=== PATIENT | male | born 1970 | race Caucasian/White ===

== ENCOUNTER 2023-09-27 10:02 | Inpatient (IN) | payer OTHER ==
[2023-09-27] MEDS ORDERED: Heparin 5,000 UNITS/ML VIAL ONE (10:51)
[2023-09-27] MEDS ORDERED: Bupivacaine PF 0.5% 30 ML VIAL ONE ×2 (10:51→11:23)
[2023-09-27] MEDS ORDERED: EPINEPHrine 1 MG/ML VIAL ONE (10:51)
[2023-09-27] MEDS ORDERED: fentaNYL PF 100 MCG/2 ML SYRINGE ONE (10:52)
[2023-09-27 11:08] LABS: #Basophils Less than 0.03 10x3/uL (0.0-0.2); #Eosinphils Less than 0.03 10x3/uL (0.0-0.7); %Basophils 0.1 % (0.0-1.0); %Lymphocytes 3.8 % (21.0-51.0); %Monocytes 8.4 % (0.0-10.0); Hematocrit 39.5 % (42.0-52.0); Hemoglobin 12.8 g/dL (14.0-18.0); Mean Corpuscular HGB CONC 32.4 g/dL (32.0-36.0); Mean Corpuscular Hemoglobin 26.9 pg (27.0-31.0); Mean Corpuscular Volume 83.2 fL (78.0-98.0); Mean Platelet Volume 10.5 fL (7.4-10.4); Platelet Count 143 10x3/uL (130-400); RBC Distribution Width 16.8 % (11.5-14.5); Red Blood Cell (RBC) Count 4.75 mill/uL (4.70-6.10)
[2023-09-27] MEDS ORDERED: SUCCINYLCHOLINE/SOD CL,ISO/PF 200 MG/10 ML SYRINGE FS ONE (11:21)
[2023-09-27] MEDS ORDERED: Rocuronium Bromide 10 MG/ML (10ML VIAL) ONE (11:21)
[2023-09-27 11:24] LABS: INR-International Normal Ratio 1.2
[2023-09-27] MEDS ORDERED: SUGAMMADEX SODIUM 200 MG/2 ML VIAL ONE (11:26)
[2023-09-27] MEDS ORDERED: fentaNYL 50 mcg/mL 1 mL Vial SLOW IVP PRN (11:34)
[2023-09-27] MEDS ORDERED: Promethazine HCl 25 MG/ML VIAL IM PRN (11:34)
[2023-09-27] MEDS ORDERED: Ondansetron PF 4 MG/2 ML Vial IVP PRN ×2 (11:34→11:36)
[2023-09-27] MEDS ORDERED: traMADol HCl 50 MG TAB PO PRN (11:34)
[2023-09-27] MEDS ORDERED: Acetaminophen 325 MG TAB PO PRN (11:36)
[2023-09-27] MEDS ORDERED: Labetalol HCl 100 MG/20 ML VIAL ONE (11:40)
[2023-09-27 11:44] LABS: ALT (SGPT) 21 U/L (8-55); AST (SGOT) 28 U/L (5-34); Albumin 3.1 g/dL (3.5-5.0); Alkaline Phosphatase 31 U/L (40-110); Anion Gap 16 mmol/L (10-20); BUN (Urea Nitrogen) 16 mg/dL (8.4-25.7); Bilirubin, Total 0.4 mg/dL (0.2-1.2); Calc. Creatinine Clearance 0 mL/min (70-130); Calcium 7.5 mg/dL (7.8-10.44); Carbon Dioxide 15 mmol/L (22-29); Chloride 114 mmol/L (98-107); Estimated GFR 68; Globulin 2.3 g/dL (2.4-3.5); Glucose 74 mg/dL (70-105); Potassium 4.2 mmol/L (3.5-5.1); Protein, Total 5.4 g/dL (6.0-8.3); Sodium 141 mmol/L (136-145); Troponin I 0.093 ng/mL (< 0.028)
[2023-09-27 16:46] VITALS: BMI 21.7
[2023-09-27] MEDS: CEFAZOLIN 2 GM in Sodium Chloride 0.9% 100 ML IVPB SCH (16:49)
[2023-09-27] MEDS: Sodium Chloride 0.9% 1,000 ML IV SCH (16:49)
[2023-09-27] MEDS ORDERED: Lorazepam 2 MG/ML VIAL SLOW IVP PRN (16:58)
[2023-09-27] MEDS: levETIRAcetam 500 MG TAB PO SCH (20:01)
[2023-09-27] MEDS: Famotidine 20 MG TAB PO SCH (20:01)
[2023-09-27] MEDS: traMADol HCl 50 MG TAB PO PRN (20:13)
[2023-09-27] MEDS: Acetaminophen 325 MG TAB PO PRN (20:13)
[2023-09-27 21:47] LABS: Magnesium 1.6 mg/dL (1.6-2.6)
[2023-09-27 21:51] LABS: Troponin I 0.138 ng/mL (< 0.028)
[2023-09-27] MEDS ORDERED: Electrolyte Replacement Protocol 1 EACH FS SCH (22:00)
[2023-09-27] MEDS: Magnesium 2 GM/50 ML(in water) 2 GM in Premix 1 BAG IVPB SCH (22:10)
[2023-09-28 05:35] LABS: #Basophils 0.03 10x3/uL (0.0-0.2); %Basophils 0.3 % (0.0-1.0); %Eosinophils 0.8 % (0.0-10.0); %Lymphocytes 17.9 % (21.0-51.0); %Neutrophils 74.5 % (42.0-75.0); Hematocrit 27.5 % (42.0-52.0); Hemoglobin 9.3 g/dL (14.0-18.0); Mean Corpuscular HGB CONC 33.8 g/dL (32.0-36.0); Mean Corpuscular Hemoglobin 27.2 pg (27.0-31.0); Mean Corpuscular Volume 80.4 fL (78.0-98.0); Mean Platelet Volume 11.1 fL (7.4-10.4); Platelet Count 121 10x3/uL (130-400); RBC Distribution Width 17.3 % (11.5-14.5); Red Blood Cell (RBC) Count 3.42 mill/uL (4.70-6.10)
[2023-09-28 06:09] LABS: Anion Gap 6 mmol/L (10-20); BUN (Urea Nitrogen) 19 mg/dL (8.4-25.7); Calc. Creatinine Clearance 97 mL/min (70-130); Calcium 7.6 mg/dL (7.8-10.44); Carbon Dioxide 24 mmol/L (22-29); Chloride 111 mmol/L (98-107); Estimated GFR 97; Glucose 106 mg/dL (70-105); Potassium 4.1 mmol/L (3.5-5.1); Sodium 137 mmol/L (136-145)
[2023-09-28 08:10] LABS: Troponin I 0.075 ng/mL (< 0.028)
[2023-09-28] MEDS: Senokot S 8.6-50 MG TAB PO SCH (08:33)
[2023-09-28] MEDS ORDERED: SOFOSBUVIR PO SCH (09:00)
[2023-09-28] MEDS ORDERED: VELPATASVIR PO SCH (09:00)
[2023-09-28 09:55] VITALS: BP 108/62; TEMP 97.6
[2023-09-28] MEDS: Morphine 2 MG/ML VIAL SLOW IVP PRN (11:41)
== END 2023-09-28 14:05 | DRG 907 ==
LOC: ERS 10:02 → EEVIPCON 10:02 → SJJU 12:52
PROVIDERS: ADMIT Surgery; ATTEND Internal Medicine
PROC: 03QB0ZZ Repair Right Radial Artery, Open Approach (ICD-10-PCS; principal; 2023-09-27)
PROC: 30233N1 Transfusion of Nonautologous Red Blood Cells into Peripheral Vein, Percutaneous Approach (ICD-10-PCS; 2023-09-27)
DX: S65.111A Laceration of radial artery at wrist and hand level of right arm, initial encounter (principal); I21.A1 Myocardial infarction type 2; R57.8 Other shock; X78.8XXA Intentional self-harm by other sharp object, initial encounter; B18.2 Chronic viral hepatitis C; K21.9 Gastro-esophageal reflux disease without esophagitis; G40.909 Epilepsy, unspecified, not intractable, without status epilepticus; F20.9 Schizophrenia, unspecified; F41.9 Anxiety disorder, unspecified; F31.9 Bipolar disorder, unspecified; Z88.8 Allergy status to other drugs, medicaments and biological substances; Z79.899 Other long term (current) drug therapy; Y93.89 Activity, other specified; Y92.149 Unspecified place in prison as the place of occurrence of the external cause; Z91.51 Personal history of suicidal behavior
CPT/HCPCS: 36415; 36430; 70450; 71045; 72125; 80048; 83605; 83735; 84484; 85025; 86850; 86900; 86901; 93005; 93010; G0390; J0171; J0665; J1644; J2272; J3475; J3490; J7050; P9016